=== PATIENT | male | born 1945 | race Caucasian/White ===

== ENCOUNTER 2018-10-09 14:19 | Outpatient (CLI) | payer MEDICARE, OTHER | END 2018-10-09 23:59 | disposition home or self-care (01) | LOC: CFH 14:19 | PROVIDERS: ATTEND Nurse Practitioner Family | DX: I08.3 Combined rheumatic disorders of mitral, aortic and tricuspid valves (principal); I11.9 Hypertensive heart disease without heart failure; E78.5 Hyperlipidemia, unspecified | CPT/HCPCS: 93306 ==

== ENCOUNTER → 2019-07-12 | Outpatient (CLI) | payer MEDICARE, OTHER ==
[~2019-07-12] MED LIST: OMNIPAQUE 350 MG/ML, 100ML BOTTLE ONE
== END | disposition home or self-care (01) ==
LOC: CFH 08:57
PROVIDERS: ATTEND Internal Medicine
DX: K76.0 Fatty (change of) liver, not elsewhere classified (principal); N28.1 Cyst of kidney, acquired; K57.30 Diverticulosis of large intestine without perforation or abscess without bleeding; N40.0 Benign prostatic hyperplasia without lower urinary tract symptoms
CPT/HCPCS: 74177; Q9967

== ENCOUNTER 2020-07-04 22:28 | Inpatient (IN) | payer MEDICARE, OTHER ==
[~2020-07-04] VITALS: Ht 170.2 cm; Wt 77.9 kg
[2020-07-04 22:59] LABS: BASOPHILS % (AUTO) 1 % (0-1); EOSINOPHILS % (AUTO) 5 % (1-7); LYMPHOCYTES % (AUTO) 43 % (22-44); MEAN CORPUSCULAR HEMOGLOBIN 34.2 pg (27.5-34.5); MEAN CORPUSCULAR HGB CONC 35.2 g/dL (33.2-36.2); MONOCYTES % (AUTO) 15 % (2-9); NEUTROPHILS % (AUTO) 36 % (42-75); PLATELET COUNT 213 x10^3/uL (130-400); RED BLOOD COUNT 4.45 x10^6/uL (4.38-5.82); RED CELL DISTRIBUTION WIDTH 12.9 % (9.4-14.8)
--- NOTE | 2020-07-04 23:01 | NUR ---
INITIAL PT CONTACT. PT PRESENTS TO ED C/O PALPITATIONS, HX OF AFIB "HR WENT DOWN TO 40'S THEN BACK UP AND DROPS AGAIN" "DIZZY THE WHOLE EVENING". PT SITTING UPRIGHT ON GURNEY, REPORTS ALMOST COMPLETE RESOLUTION OF DIZZINESS SENSATION. PT PLACED ON CONTINUOUS PULSE OX AND CARDIAC MONITORING. CALL LIGHT AND BELONGINGS WITHIN REACH. AT BEDSIDE. AWAITING ERP
[2020-07-04 23:03] LABS: MD NO
[2020-07-04 23:07] LABS: ALBUMIN 4.1 g/dL (3.4-5.0); ANION GAP 6 mmol/L (5-15); CALCIUM 9.4 mg/dL (8.5-10.1); CHLORIDE 93 mmol/L (98-107); CREATININE 0.86 mg/dL (0.7-1.3)
[2020-07-04 23:11] LABS: TROPONIN I < 0.015 ng/mL (0.000-0.045)
--- NOTE | 2020-07-04 23:11 | NUR ---
ERP AT BEDSIDE
[2020-07-05] MEDS ORDERED: ROSU5TAB PO (00:08)
[2020-07-05] MEDS ORDERED: FLEC50TA25 PO (00:08)
[2020-07-05] MEDS ORDERED: ESOM20CA PO (00:08)
[2020-07-05] MEDS ORDERED: BENA1TAB9 PO (00:08)
[2020-07-05] MEDS ORDERED: RIVA20TA PO (00:08)
[2020-07-05] MEDS ORDERED: METO25TA2 PO (00:08)
[2020-07-05] MEDS ORDERED: POTASSIUM CHLORIDE 20 MEQ TAB.ER.PRT PO ONE (01:30)
[2020-07-05] MEDS ORDERED: ONDANSETRON 2MG/ML, 2ML IVPush PRN (01:30)
[2020-07-05] MEDS ORDERED: ACETAMINOPHEN 325 MG TABLET PO PRN (01:30)
[2020-07-05] MEDS ORDERED: POTASSIUM CHLORIDE 20 MEQ TAB.ER.PRT ONE (01:43)
--- NOTE | 2020-07-05 01:45 | NUR ---
PT TRANSFERED FROM ED [facility] TO HOSPITAL BED. PT TOLERATED WELL. PT DENIES ANY ADDITIONAL NEEDS AT THIS TIME. CALL LIGHT AND PERSONAL BELONGINGS WITHIN REACH.
[2020-07-05] MEDS ORDERED: SODIUM CHLORIDE 0.9% 1,000 ML IV SCH (02:00)
--- NOTE | 2020-07-05 02:09 | NUR ---
PT AMBULATORY WITH THIS RN TO BATHROOM WITH STEADY GAIT. PT DENIES ANY NEEDS AT THIS TIME. CALL LIGHT AND BELONGINGS WITHIN REACH.
[2020-07-05 02:30] LABS: ALANINE AMINOTRANSFERASE 48 U/L (12-78); BILIRUBIN, DIRECT 0.2 mg/dL (0.1-0.2)
[2020-07-05 02:32] LABS: ALKALINE PHOSPHATASE 44 U/L (45-117); BILIRUBIN,INDIRECT 0.5 mg/dL (0.0-2.0); BILIRUBIN,TOTAL 0.7 mg/dL (0.2-1.0); TOTAL PROTEIN 7.8 g/dL (6.4-8.2)
[2020-07-05 03:02] LABS: FREE T4 (FREE THYROXINE) 0.93 ng/dL (0.76-1.46)
[2020-07-05 04:36] LABS: ANION GAP 5 mmol/L (5-15); CHLORIDE 95 mmol/L (98-107); CREATININE 0.79 mg/dL (0.7-1.3)
--- NOTE | 2020-07-05 05:41 | NUR ---
PT AMBULATORY WITH STEADY GAIT WITH THIS RN TO BATHROOM. PT DENIES ANY ADDITIONAL NEEDS AT THIS TIME. CALL LIGHT AND BELONGINGS WITHIN REACH.
--- NOTE | 2020-07-05 06:48 | NUR ---
BEDSIDE REPORT TO DAGO HERCULES
--- NOTE | 2020-07-05 06:55 | NUR ---
REPORT FROM DIOMEDES GUSMAN. PT ASLEEP UPON RN ENTRY TO ROOM. PT AWAKENS EASILY. NAD NOTED AT THIS TIME. PT DENIES PAIN AT THIS TIME. VSS. SIDE RAIL UP, CALL LIGHT IN REACH.
--- NOTE | 2020-07-05 08:20 | NUR ---
PT AMBULATES WELL INDEPENDENTLY TO BATHROOM. FIRST ATTEMPT TO CALL REPORT.
[2020-07-05] MEDS ORDERED: THIAMINE 100MG TABLET ONE (08:23)
[2020-07-05] MEDS ORDERED: OMEPRAZOLE 20 MG CAPSULE.DR ONE (08:23)
[2020-07-05] MEDS: THIAMINE 100MG TABLET PO/NG SCH (08:28)
[2020-07-05] MEDS: OMEPRAZOLE 20 MG CAPSULE.DR PO SCH (08:28)
--- NOTE | 2020-07-05 08:31 | NUR ---
PT BACK IN BED, PO MEDS ADMINISTERED. PT SITTING UP IN BED WITH MEAL TRAY. NAD NOTED AT THIS TIME.
--- NOTE | 2020-07-05 08:40 | NUR ---
PT TRANSPORT WITH IVF STILL INFUSING. BELONGINGS PLACED IN BAG, LABELLED WITH PT STICKER AND PLACED ON HOSPITAL BED FOR TRANSPORT.
[2020-07-05 09:45] VITALS: BP 124/68
[2020-07-05 10:11] VITALS: BP 124/68
[2020-07-05 14:49] VITALS: BP 134/73
[2020-07-05 20:06] VITALS: BP 137/76
[2020-07-05 20:08] VITALS: BP 136/72
[2020-07-05 20:10] VITALS: BP 153/70
[2020-07-05] MEDS ORDERED: RIVAROXABAN 20 MG TABLET PO SCH (21:00)
[2020-07-05] MEDS: ATORVASTATIN 20 MG TABLET PO SCH (21:57)
[2020-07-06 01:10] VITALS: BP 134/78
[2020-07-06 05:02] LABS: BASOPHILS % (AUTO) 1 % (0-1); EOSINOPHILS % (AUTO) 5 % (1-7); LYMPHOCYTES % (AUTO) 29 % (22-44); MEAN CORPUSCULAR HEMOGLOBIN 34.4 pg (27.5-34.5); MEAN CORPUSCULAR HGB CONC 34.9 g/dL (33.2-36.2); MEAN PLATELET VOLUME 7.9 fL (7.4-10.4); MONOCYTES % (AUTO) 16 % (2-9); NEUTROPHILS % (AUTO) 49 % (42-75); PLATELET COUNT 190 x10^3/uL (130-400); RED BLOOD COUNT 4.36 x10^6/uL (4.38-5.82)
[2020-07-06 05:11] LABS: MD NO
[2020-07-06 05:15] LABS: ANION GAP 4 mmol/L (5-15); CALCIUM 9.3 mg/dL (8.5-10.1); CHLORIDE 101 mmol/L (98-107)
[2020-07-06 05:16] LABS: CREATININE 0.73 mg/dL (0.7-1.3)
[2020-07-06 08:05] VITALS: BP 146/85
[2020-07-06] MEDS: THIAMINE 100MG TABLET PO/NG SCH (09:17)
[2020-07-06] MEDS: OMEPRAZOLE 20 MG CAPSULE.DR PO SCH (09:17)
[2020-07-06] MEDS ORDERED: CEFAZOLIN PMX 1GM/50ML 50 ML IVPB ONE (11:00)
[2020-07-06] MEDS: SODIUM CHLORIDE 0.9% 1,000 ML IV SCH ×2 (12:32→20:52)
[2020-07-06 14:53] VITALS: BP 144/85
[2020-07-06 19:51] VITALS: BP 142/63
[2020-07-06] MEDS: ATORVASTATIN 20 MG TABLET PO SCH (20:52)
[2020-07-07 02:32] VITALS: BP 135/82
[2020-07-07] MEDS: SODIUM CHLORIDE 0.9% 1,000 ML IV SCH ×3 (06:19→19:00)
[2020-07-07] MEDS: THIAMINE 100MG TABLET PO/NG SCH (07:51)
[2020-07-07] MEDS: OMEPRAZOLE 20 MG CAPSULE.DR PO SCH (07:51)
[2020-07-07 07:58] VITALS: BP 147/71
[2020-07-07] MEDS ORDERED: MIDAZOLAM 1 MG/ML, 5ML ONE (09:48)
[2020-07-07] MEDS ORDERED: FENTANYL PF 100 MCG/2ML ONE (09:48)
[2020-07-07] MEDS ORDERED: CEFAZOLIN 1,000 MG ONE (09:49)
[2020-07-07] MEDS ORDERED: LIDOCAINE 2%, 20ML ONE (09:49)
[2020-07-07] MEDS ORDERED: CEFAZOLIN PMX 1GM/50ML 100 ML ONE (09:49)
[2020-07-07] MEDS ORDERED: HOLD MEDICATION MC PRN (13:30)
[2020-07-07] MEDS ORDERED: PHARMACY INSTRUCTION MC PRN (13:30)
[2020-07-07 14:19] VITALS: BP 135/70
[2020-07-07] MEDS: OXYcodone/APAP 5/325MG TABLET PO PRN ×2 (17:24→22:12)
[2020-07-07] MEDS ORDERED: HYDROmorphone 2 MG/ML, 1ML IVPush PRN (17:30)
[2020-07-07 20:24] VITALS: BP 122/71
[2020-07-07] MEDS: ATORVASTATIN 20 MG TABLET PO SCH (22:10)
[2020-07-07] MEDS: SODIUM CHLORIDE FLUSH 10ML SYR IVF SCH (22:10)
[2020-07-08 01:18] VITALS: BP 128/75
[2020-07-08] MEDS: SODIUM CHLORIDE 0.9% 1,000 ML IV SCH ×2 (03:00→11:00)
[2020-07-08 05:12] LABS: BASOPHILS % (AUTO) 1 % (0-1); EOSINOPHILS % (AUTO) 5 % (1-7); LYMPHOCYTES % (AUTO) 27 % (22-44); MEAN CORPUSCULAR HEMOGLOBIN 34.3 pg (27.5-34.5); MEAN CORPUSCULAR HGB CONC 34.7 g/dL (33.2-36.2); MEAN PLATELET VOLUME 7.6 fL (7.4-10.4); MONOCYTES % (AUTO) 16 % (2-9); NEUTROPHILS % (AUTO) 51 % (42-75); PLATELET COUNT 166 x10^3/uL (130-400); RED BLOOD COUNT 4.27 x10^6/uL (4.38-5.82); RED CELL DISTRIBUTION WIDTH 12.6 % (9.4-14.8)
[2020-07-08 05:20] LABS: ANION GAP 5 mmol/L (5-15); CALCIUM 8.7 mg/dL (8.5-10.1); CHLORIDE 105 mmol/L (98-107); CREATININE 0.76 mg/dL (0.7-1.3)
[2020-07-08 05:21] LABS: MD NO
[2020-07-08 08:23] VITALS: BP 161/75
[2020-07-08] MEDS: OMEPRAZOLE 20 MG CAPSULE.DR PO SCH (08:31)
[2020-07-08] MEDS: SODIUM CHLORIDE FLUSH 10ML SYR IVF SCH (08:32)
[2020-07-08] MEDS: OXYcodone/APAP 5/325MG TABLET PO PRN (08:32)
[2020-07-08] MEDS: THIAMINE 100MG TABLET PO/NG SCH (08:32)
[2020-07-08] MEDS ORDERED: OXYC1TAB14 PO (12:37)
== END 2020-07-08 13:50 | disposition home or self-care (01) | DRG 243 ==
LOC: ED 07-05 02:35 → INTOOBSV 07-05 02:42 → OBSVTOIN 07-05 02:42 → EDIP 07-05 02:42 → 5SO 07-05 09:03 → DCLOUNGE 07-08 13:42
PROVIDERS: ADMIT Family Medicine; ATTEND Internal Medicine
PROC: 0JH606Z Insertion of Pacemaker, Dual Chamber into Chest Subcutaneous Tissue and Fascia, Open Approach (ICD-10-PCS; principal; 2020-07-07)
PROC: 02H63JZ Insertion of Pacemaker Lead into Right Atrium, Percutaneous Approach (ICD-10-PCS; 2020-07-07)
PROC: 02HK3JZ Insertion of Pacemaker Lead into Right Ventricle, Percutaneous Approach (ICD-10-PCS; 2020-07-07)
DX: I49.5 Sick sinus syndrome (principal); E87.1 Hypo-osmolality and hyponatremia; D68.69 Other thrombophilia; R00.1 Bradycardia, unspecified; I48.91 Unspecified atrial fibrillation; F10.10 Alcohol abuse, uncomplicated; E87.6 Hypokalemia; E78.5 Hyperlipidemia, unspecified; I10 Essential (primary) hypertension; K21.9 Gastro-esophageal reflux disease without esophagitis; Z79.01 Long term (current) use of anticoagulants; Z82.49 Family history of ischemic heart disease and other diseases of the circulatory system; Z87.891 Personal history of nicotine dependence; Z95.0 Presence of cardiac pacemaker
CPT/HCPCS: 33208; 36415; 71045; 80048; 80076; 82040; 83735; 84100; 84439; 84443; 84484; 85025; 93005; 93306; 99156; 99157; C1779; C1785; C1892; G0378; J0690; J2250; J3010; J7030